=== PATIENT | female | born 1930 | race Caucasian/White ===

== ENCOUNTER 2018-06-16 11:20 | Day surgery (SDC) | payer MEDICARE, OTHER ==
[2018-06-16] MEDS ORDERED: PROPOFOL 20 ML (12:33)
== END 2018-06-16 14:51 | disposition home or self-care (01) ==
LOC: GIL 11:20
DX: K29.50 Unspecified chronic gastritis without bleeding (principal); K44.9 Diaphragmatic hernia without obstruction or gangrene; K21.9 Gastro-esophageal reflux disease without esophagitis; K22.5 Diverticulum of esophagus, acquired; R63.4 Abnormal weight loss; Z68.37 Body mass index [BMI] 37.0-37.9, adult; K59.00 Constipation, unspecified; I10 Essential (primary) hypertension; M19.90 Unspecified osteoarthritis, unspecified site
CPT/HCPCS: 43239; 88305; 88312